=== PATIENT | male | born 1945 | race Caucasian/White ===

== ENCOUNTER → 2016-08-31 | Outpatient (CLI) | payer BC, OTHER ==
[2016-08-31 17:00] LABS: ALBUMIN 4.1 g/dL (3.4-5.0); ANION GAP 10.6 MEQ/L (3-15); CALCULATED IONIZED CALCIUM 4.5 mg/dL (3.8-4.6); MAGNESIUM* 1.8 mg/dL (1.6-2.3); TOTAL PROTEIN 6.5 g/dL (6.4-8.5)
== END ==
LOC: LAB 16:06
PROVIDERS: ATTEND Family Medicine
DX: Z51.81 Encounter for therapeutic drug level monitoring (principal); Z79.01 Long term (current) use of anticoagulants; R79.89 Other specified abnormal findings of blood chemistry
CPT/HCPCS: 36415; 80053; 83735; 85610

== ENCOUNTER 2016-10-16 06:39 | Observation (INO) | payer BC, OTHER ==
[~2016-10-16] VITALS: Ht 182.9 cm; Wt 133.7 kg
[2016-10-16] MEDS ORDERED: ASPIRIN 81 MG CHEW (CHILDREN'S ASA) ONE (06:46)
[2016-10-16] MEDS ORDERED: morphine INJ 4 MG/ML 1 ML SYRINGE IV PRN (06:50)
[2016-10-16] MEDS ORDERED: ONDANSETRON 2 MG/ML (Z0FRAN) 2 ML VIAL IV ONE (06:50)
[2016-10-16] MEDS ORDERED: SODIUM CHLORIDE FLUSH 10 ML SYR IV PRN (06:50)
[2016-10-16] MEDS ORDERED: SODIUM CHLORIDE FLUSH 3 ML SYR IV PRN (06:50)
[2016-10-16] MEDS ORDERED: ASPIRIN 81 MG CHEW (CHILDREN'S ASA) PO ONE (06:50)
[2016-10-16] MEDS ORDERED: NITROGLYCERIN SUBLINGUAL 0.4 MG (NITROQUICK) TABLET SL PRN (06:50)
[2016-10-16 06:54] LABS: BASOPHILS % (AUTO) 0 % (0-2); EOSINOPHILS # (AUTO) 0.3 10^3uL; EOSINOPHILS % (AUTO) 4 % (0-4); LYMPHOCYTES # (AUTO) 1.6 X10^3; MEAN CORPUSCULAR HEMOGLOBIN 30.5 PG (26.0-34.0); MEAN CORPUSCULAR HGB CONC 35.3 g/dL (31.0-37.0); MEAN CORPUSCULAR VOLUME 86 FL (80-100); MEAN PLATELET VOLUME 9.6 FL (6.0-9.5); MONOCYTES # (AUTO) 0.7 X10^3; MONOCYTES % (AUTO) 9 % (3-11); NEUTROPHILS # (AUTO) 5.1 X10^3; NEUTROPHILS % (AUTO) 66 % (51-67); PLATELET COUNT 177 10^3uL (150-450); WHITE BLOOD COUNT 7.68 10^3uL (4.0-11.0)
[2016-10-16 07:04] LABS: ALBUMIN 4.2 g/dL (3.4-5.0); ALKALINE PHOSPHATASE 125 U/L (38-126); ANION GAP 14.5 MEQ/L (3-15); BUN/CREATININE RATIO 23 (10-20); CREATINE KINASE 54 U/L (55-170); TOTAL PROTEIN 7.1 g/dL (6.4-8.5)
[2016-10-16] MEDS ORDERED: BUDESONIDE NEBS 0.5 MG/2ML (PULMICORT) AMP INH ONE (07:05)
--- NOTE | 2016-10-16 07:35 | NUR ---
PT INITIALLY HAD <90 % RA O2 SATS. AFTER O2 SATS STABLE O2 TITRATED OFF. PT AT PRIOR TO THIS TIME HAD BEEN HOLDING HIS BREATH WITH BP CHECKS D/T TIGHT CUFF. WHEN INSTRUCTED TO TAKE SLOW DEEP BREATHS PT DOES BETTER W/BP CHECKS. AT THIS TIME PT NOT HOLDING HIS BREATH & NOT HAVING BP CHECKED SO DESPITE TAKING DEEP BREATHS O2 SAT DOWN TO 85% ON RA. O2 REAPPLIED AT 1L/NC. O2 SATS CAME UP IMMED. TO LOW - MID 90'S. PT DERRICK WELL. REMAINS AT BEDSIDE. CL
--- NOTE | 2016-10-16 09:20 | NUR ---
Patient admitted to room 317 per cart from ER. He is not short of air at this time. O2 sat.= 92% on room air. Denies chest pain at this time.
[2016-10-16 09:28] VITALS: BP 130/82
[2016-10-16] MEDS ORDERED: ACETAMINOPHEN 325 MG TAB (TYLENOL) PO PRN (09:40)
--- NOTE | 2016-10-16 11:52 | NUR ---
Med Rec completed via patient's med list.
[2016-10-16] MEDS ORDERED: DEXTROSE 50% 25 GM/50 ML SYRINGE IV PRN (14:30)
[2016-10-16] MEDS ORDERED: DEXTROSE ORAL GEL (GLUTOSE 40%) 15 GM TUBE PO PRN (14:30)
[2016-10-16] MEDS ORDERED: GLUCAGON EMERGENCY 1 MG/KIT IM PRN (14:30)
[2016-10-16] MEDS ORDERED: warFARin 5 MG (COUMADIN) TAB PO SCH ×2 (14:30→17:00)
[2016-10-16 15:50] VITALS: BP 142/73
[2016-10-16] MEDS: INSULIN LISPRO 1 UNIT/0.01 ML (HUMALOG) DOSE SC SCH ×2 (17:30→20:11)
[2016-10-16] MEDS: metFORMIN 500 MG (GLUCOPHAGE) TABLET PO SCH (18:02)
[2016-10-16] MEDS: PYRIDOSTIGMINE 60 MG PO SCH ×2 (18:02→20:11)
--- NOTE | 2016-10-16 18:35 | NUR ---
Patient continued to deny pain throughout the shift. No shortness of air noted. Telemetry has been in A-fib. which is chronic for the patient.
[2016-10-16] MEDS ORDERED: NON-FORMULARY MEDICATION 1 EA EA (Pravastatin Sodium 80 MG) PO SCH (21:00)
[2016-10-16] MEDS ORDERED: NORTRIPTYLINE 25 MG (PAMELOR) CAP PO SCH (21:00)
[2016-10-16] MEDS ORDERED: CHOLECALCIFEROL 1000 INT UNITS (VITAMIN D3) TABLET PO SCH (21:00)
[2016-10-16] MEDS ORDERED: METFORMIN HCL 500 MG PO SCH (21:00)
[2016-10-16] MEDS ORDERED: SIMvastatin 40 MG (ZOCOR) TAB PO SCH (21:00)
[2016-10-16] MEDS ORDERED: doxAzosin 2 MG (CARDURA) TAB PO SCH (21:00)
[2016-10-16] MEDS ORDERED: NON-FORMULARY MEDICATION 1 EA EA (Aspirin (Aspir 81) 81 MG) PO SCH (21:00)
[2016-10-16] MEDS ORDERED: doxAzosin 4 MG (CARDURA) TAB PO SCH ×2 (21:00)
[2016-10-17 00:13] VITALS: BP 150/94
[2016-10-17] MEDS: INSULIN LISPRO 1 UNIT/0.01 ML (HUMALOG) DOSE SC SCH (06:08)
--- NOTE | 2016-10-17 06:15 | NUR ---
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 Pt rests w/o complaints. Tachycardia noted on telemetry when pt is exerting himself, but he recovers well. SL intact. Resp even and non labored on home CPAP.
[2016-10-17 06:38] LABS: ALBUMIN 3.4 g/dL (3.4-5.0); ANION GAP 11.7 MEQ/L (3-15); MAGNESIUM* 1.7 mg/dL (1.6-2.3)
--- NOTE | 2016-10-17 07:52 | NUR ---
NUTRITION ASSESSMENT Level 1 Patient: Huey Lancaster Age/Sex: 71/M Date Screened: 10-17-16 Weight: 294.1#/133.7 kg Height: 72 inches Primary Diagnosis: influenza A Diet Order: cardiac, medium diabetic Relevant labs: glucose 148 Food allergies: N Nutrition Assessment Criteria Age over 80: N Body Mass Index (BMI) under 19: N Admission Screening Indicates Risk? 3 points Moderate/High Risk Diagnosis: N TPN or PPN: N NPO or clear liquid diet: N Serum Glucose <70 or >180: N Hgb A1c >6.7: N/A Total: 3 points Risk Screen: __ Patient at low nutritional risk based on available data; reevaluate in 5-7 days _X_ Patient at moderate nutritional risk based on available data; reevaluate in 3-5 days __ Patient at high nutritional risk; complete Nutrition Assessment within 48 hours of admission. Comments: Weight has been stable (last documented at 298# in Nov, 2015), denies GI concerns, states good appetite. Will reassess as documented above.
[2016-10-17] MEDS ORDERED: MULTIVITAMIN W/MINERALS (THERAGRAN M) TABLET PO SCH (08:00)
[2016-10-17 08:08] VITALS: BP 142/86
--- NOTE | 2016-10-17 08:10 | NUR ---
Patient's heart rate was elevated during a trip to the bathroom- rate went up to 140-160's and remained in A-fib. When questioned about medications, the patient reported he did not take any of his home medications yesterday prior to arrival at the hospital so he did not get any beta christiano.
--- NOTE | 2016-10-17 08:25 | NUR ---
Patient's heart rate recovered to 90-100 when he sat back down in bed.
[2016-10-17] MEDS: metFORMIN 500 MG (GLUCOPHAGE) TABLET PO SCH (08:35)
[2016-10-17] MEDS: PYRIDOSTIGMINE 60 MG PO SCH (08:35)
--- NOTE | 2016-10-17 08:35 | NUR ---
All morning home medications given. An additional 25 mg. dose of Atenolol was added to the home dose of 25 mg. Will continue to monitor.
[2016-10-17] MEDS ORDERED: [UNRECOGNIZED DRUG - OTHER] PO SCH (09:00)
[2016-10-17] MEDS ORDERED: ATENOLOL 50 MG (TENORMIN) TAB PO SCH (09:00)
[2016-10-17] MEDS ORDERED: ATENOLOL 25 MG (TENORMIN) TAB PO SCH (09:00)
[2016-10-17] MEDS ORDERED: ASPIRIN 81 MG CHEW (CHILDREN'S ASA) PO SCH (09:00)
[2016-10-17] MEDS ORDERED: LOSARTAN 100 MG (COZAAR) TABLET PO SCH (09:00)
[2016-10-17] MEDS ORDERED: HYDROCHLOROTHIAZIDE PO SCH (09:00)
[2016-10-17] MEDS ORDERED: VIT A,C & E/LUTEIN/MINERALS (I-VITE) TABLET PO SCH (09:00)
[2016-10-17] MEDS ORDERED: FINASTERIDE (PROSCAR) 5 MG TAB PO SCH (09:00)
[2016-10-17] MEDS ORDERED: ZINC PO SCH (09:00)
[2016-10-17] MEDS ORDERED: ALLOPURINOL 300 MG (ZYLOPRIM) TAB PO SCH (09:00)
[2016-10-17] MEDS ORDERED: VIT E PO SCH (09:00)
[2016-10-17] MEDS ORDERED: VIT C PO SCH (09:00)
[2016-10-17] MEDS ORDERED: VIT A PO SCH (09:00)
[2016-10-17] MEDS ORDERED: COPPER PO SCH (09:00)
[2016-10-17] MEDS ORDERED: PANTOPRAZOLE 40 MG (PROTONIX) TAB PO SCH (09:00)
[2016-10-17] MEDS ORDERED: HYDROCHLOROTHIAZIDE 12.5 MG (HCTZ) TABLET PO SCH (09:00)
[2016-10-17] MEDS ORDERED: [UNRECOGNIZED DRUG - OTHER] PO SCH (09:00)
[2016-10-17] MEDS ORDERED: IRBESARTAN PO SCH (09:00)
[2016-10-17] MEDS ORDERED: OMEGA-3 FATTY ACIDS (FISH OIL) 500 MG CAPSULE PO SCH (09:00)
--- NOTE | 2016-10-17 10:45 | NUR ---
Walked patient the length of the gonsalez and his heart rate was 90-120 after a.m. medications. He remained asymptomatic throughout the morning.
--- NOTE | 2016-10-17 11:00 | NUR ---
Heart rate= 70's - 80's at rest.
--- NOTE | 2016-10-17 11:30 | NUR ---
Heart rate remains normal on telemetry.
--- NOTE | 2016-10-17 11:40 | NUR ---
Gave the patient and his discharge instructions. Informed them no new scripts were issued for this visit. Educated him on the importance of follow up with PCP this Sunday at 2:30. Patient and his demonstrated verbal understanding.
--- NOTE | 2016-10-17 11:48 | NUR ---
Patient dismissed ambulatory accompanied by a PRIVATE [employer] EXCHANGE OPERATOR.
[2016-10-21] MEDS ORDERED: warFARin 2.5 MG (COUMADIN) TAB PO SCH (17:00)
== END 2016-10-17 11:48 | disposition home or self-care (01) ==
LOC: ED 06:42 → MED/SURG 08:30
PROVIDERS: ADMIT Family Medicine; ATTEND Family Medicine
DX: J10.1 Influenza due to other identified influenza virus with other respiratory manifestations (principal); I48.2 Chronic atrial fibrillation; I10 Essential (primary) hypertension; G70.00 Myasthenia gravis without (acute) exacerbation; I25.10 Atherosclerotic heart disease of native coronary artery without angina pectoris; G47.33 Obstructive sleep apnea (adult) (pediatric); E11.42 Type 2 diabetes mellitus with diabetic polyneuropathy; R07.89 Other chest pain; Z79.01 Long term (current) use of anticoagulants; Z79.84 Long term (current) use of oral hypoglycemic drugs; Z95.5 Presence of coronary angioplasty implant and graft
CPT/HCPCS: 36415; 71010; 80053; 80069; 82550; 82553; 83735; 83880; 84484; 85025; 85610; 85730; 86140; 87486; 87581; 87633; 87798; 93005; 93010; 94640; 99218; 99284; 99285

== ENCOUNTER → 2016-10-25 | Outpatient (CLI) | payer BC, OTHER ==
[~2016-10-25] MED LIST: AC500T PO; ALBU8.5H2 IH; ALLO300T2 PO; ASPI-345 PO; ASPI-586 PO; ATN25T PO; AZIT250T81 PO; BETA1TAB15 PO; CHOL100048 PO; CIPR500S2 PO; CLIN-78 PO; CYAN1TAB50 PO; DXZS4T PO; FLUT1DIS3 IH; FNST5T PO; FURO-124 PO; IRBE1TAB33 PO; IRBE1TAB65; LYCO15CA PO; METF-759 PO; MV-M1TAB2 PO; NITR12SP5; NITR12SP5 SL; NORT25CA PO; OMEG1CAP24 PO; OMEG1CAP58 PO; PANT40TA3 PO; POTA10CA16 PO; PRAV80TA PO; PRAV80TA2 PO; PYRI60TA PO; WARF2.5T PO; WARF2.5T82 PO; WARF5TAB PO; WRF5T PO; [UNRECOGNIZED DRUG - OTHER]; [UNRECOGNIZED DRUG - OTHER] PO
--- NOTE | 2016-10-25 11:42 | Diagnostic Imaging Report ---
INDICATION: Fall with right elbow pain and swelling There is extensive hematoma along the dorsal aspect of the elbow. There is prominent posterior olecranon spur with mild diffuse degenerative change within the elbow joint. No definite fracture line is seen. IMPRESSION: Extensive elbow swelling. Tenderness or ligamentous injury is not excluded, however, there is no evidence of acute osseous abnormality. Dictated by: Dictated on workstation # [id number]
== END ==
LOC: RAD 11:12
PROVIDERS: ATTEND Family Medicine
DX: M25.521 Pain in right elbow (principal); M79.89 Other specified soft tissue disorders; W19.XXXA Unspecified fall, initial encounter
CPT/HCPCS: 73080